=== PATIENT | female | born 1965 | race Caucasian/White ===

== ENCOUNTER 2018-12-05 17:38 | Emergency (ER) | payer SELFPAY ==
[~2018-12-05] VITALS: Ht 170.2 cm; Wt 69.0 kg
[2018-12-05 17:42] VITALS: BP 130/87
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
--- NOTE | 2018-12-05 17:58 | NUR ---
DR JIM AT BEDSIDE FOR PT EVAL
[2018-12-05 18:21] VITALS: BP 128/84
--- NOTE | 2018-12-05 18:21 | NUR ---
Patient discharged with v/s stable. Written and verbal after care instructions given and explained. Patient alert, oriented and verbalized understanding of instructions. Ambulatory with steady gait. All questions addressed prior to discharge. ID band removed. Patient advised to follow up with PMD. Rx of [facility] Hydrocortisone 1% topical cream, Permethrin 5% topical cream, Clindamycin Hydrochloride given. Patient educated on indication of medication including possible reaction and side effects. Opportunity to ask questions provided and answered.
== END 2018-12-05 18:21 | disposition home or self-care (01) ==
LOC: MED 17:38
DX: S40.862A Insect bite (nonvenomous) of left upper arm, initial encounter (principal); S30.860A Insect bite (nonvenomous) of lower back and pelvis, initial encounter; S30.861A Insect bite (nonvenomous) of abdominal wall, initial encounter; F17.210 Nicotine dependence, cigarettes, uncomplicated; W57.XXXA Bitten or stung by nonvenomous insect and other nonvenomous arthropods, initial encounter; Y93.89 Activity, other specified; Y92.89 Other specified places as the place of occurrence of the external cause; Y99.8 Other external cause status
CPT/HCPCS: 99283

== ENCOUNTER 2019-06-04 00:39 | Emergency (ER) | payer SELFPAY ==
[~2019-06-04] VITALS: Ht 170.2 cm; Wt 70.3 kg
[2019-06-04 00:54] VITALS: BP 135/81
--- NOTE | 2019-06-04 00:57 | NUR ---
PT AMBULATED TO BED 6.
--- NOTE | 2019-06-04 01:17 | NUR ---
53 Y/O FEMALE C/O BUG BITES TO RT ARM X 2 DAYS. PT STATES ITCHING AND 7/10 BURNING PAIN TO ARM. MILD REDNESS NOTED. DENIES FEVER/CHILLS. +CMS. NO SWELLING NOTED TO ARMS. RR EVEN AND UNLABORED, PT SITTING IN BED CALM AND PLEASANT. VSS. MEDHX: DENIES ALLERGIES: NKA
--- NOTE | 2019-06-04 01:36 | NUR ---
Dr. Chaudhari examining patient.
[2019-06-04] MEDS ORDERED: IBUPROFEN 800 MG TAB PO ONE (01:40)
[2019-06-04] MEDS ORDERED: SULFAMETH/TRIMETH DS 800/160MG 1 TAB PO ONE (01:40)
--- NOTE | 2019-06-04 01:54 | NUR ---
Patient discharged with v/s stable. Written and verbal after care instructions given and explained. Patient alert, oriented and verbalized understanding of instructions. Ambulatory with steady gait. All questions addressed prior to discharge. ID band removed. Patient advised to follow up with PMD. Rx of BACTRIM AND MOTRIN given. Patient educated on indication of medication including possible reaction and side effects. Opportunity to ask questions provided and answered.
--- NOTE | 2019-06-04 01:54 | NUR ---
PT LEFT BEFORE MEDICATION COULD BE RE-EVALUATED.
[2019-06-04 01:55] VITALS: BP 135/81
== END 2019-06-04 01:54 | disposition home or self-care (01) ==
LOC: MED 00:39
DX: S50.861A Insect bite (nonvenomous) of right forearm, initial encounter (principal); F17.200 Nicotine dependence, unspecified, uncomplicated; R03.0 Elevated blood-pressure reading, without diagnosis of hypertension; R21 Rash and other nonspecific skin eruption; Z71.6 Tobacco abuse counseling; W57.XXXA Bitten or stung by nonvenomous insect and other nonvenomous arthropods, initial encounter; Y93.89 Activity, other specified; Y92.89 Other specified places as the place of occurrence of the external cause; Y99.8 Other external cause status
CPT/HCPCS: 99283

== ENCOUNTER 2019-07-28 06:58 | Emergency (ER) | payer SELFPAY ==
[~2019-07-28] VITALS: Ht 167.6 cm; Wt 73.9 kg
[2019-07-28 07:03] VITALS: BP 121/57
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
[2019-07-28] MEDS ORDERED: NACL 0.9% 1,000 ML IV ONE (08:00)
--- NOTE | 2019-07-28 08:15 | NUR ---
REPORT TO SHEILA REINOSO RN.
--- NOTE | 2019-07-28 08:53 | NUR ---
PT RESTING IN BED, AWAKE, NO SIGNS OF DISTRESS.
--- NOTE | 2019-07-28 08:53 | NUR ---
PT INQUIRING ABOUT ANTI PRURITIS MEDICATION. WILL ASK ERMJasen.
[2019-07-28] MEDS ORDERED: diphenhydrAMINE 50 MG/ML VIAL IVP ONE (09:00)
--- NOTE | 2019-07-28 09:00 | NUR ---
DISCUSSED POSSIBLE SIDE EFFECTS OF THE ORDERED BENADRYL---PT VERBALIZED UNDERSTANDING. PT STATES A FAMILY MEMBER WILL BE HERE TO PICK HER UP AT DISCHARGE.
--- NOTE | 2019-07-28 10:03 | NUR ---
PT STATES STILL WITH ITCHING AT AFFECTED "BUG BITE" AREAS BUT ITCHING HAS DECREASED.
--- NOTE | 2019-07-28 10:05 | NUR ---
AMB TO BATHROOM WITH STEADY GAIT
[2019-07-28 10:20] VITALS: BP 118/68
--- NOTE | 2019-07-28 10:20 | NUR ---
Patient discharged with v/s stable. Written and verbal after care instructions given and explained. Patient alert, oriented and verbalized understanding of instructions. Ambulatory with steady gait. All questions addressed prior to discharge. ID band removed. Patient advised to follow up with PMD. Rx of Keflex and Naprosyn given. Patient educated on indication of medication including possible reaction and side effects. Opportunity to ask questions provided and answered.
== END 2019-07-28 10:20 | disposition home or self-care (01) ==
LOC: MED 06:58
DX: L03.113 Cellulitis of right upper limb (principal)
CPT/HCPCS: 96374; 99283; J1200

== ENCOUNTER 2019-07-28 19:28 | Emergency (ER) | payer MEDICAID ==
[~2019-07-28] VITALS: Ht 167.6 cm; Wt 73.9 kg
[2019-07-28 20:05] VITALS: BP 135/89
--- NOTE | 2019-07-28 20:08 | NUR ---
TO LOBBY A/W BED AMBULATORY
--- NOTE | 2019-07-28 20:37 | NUR ---
PT AMBULATED TO CHAIR D
[2019-07-28] MEDS ORDERED: cefTRIAXone 1,000 MG in LIDOCAINE MPF 1% 2.1 ML IM ONE (20:45)
[2019-07-28] MEDS ORDERED: KETOROLAC 60 MG/2 ML VIAL IM ONE (20:45)
[2019-07-28] MEDS ORDERED: LIDOCAINE MPF 1% 5 ML ONE (20:46)
[2019-07-28] MEDS ORDERED: cefTRIAXone 1,000 MG VIAL ONE (20:46)
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
[2019-07-28 21:14] VITALS: BP 135/89
--- NOTE | 2019-07-28 21:14 | NUR ---
Patient discharged with v/s stable. Written and verbal after care instructions given and explained. Patient verbalized understanding. Ambulatory with steady gait. All questions addressed prior to discharge. Advised to follow up with PMD.
== END 2019-07-28 21:14 | disposition home or self-care (01) ==
LOC: MED 19:28
DX: L03.114 Cellulitis of left upper limb (principal)
CPT/HCPCS: 96372; 99284; J0696; J1885; J2001

== ENCOUNTER 2021-12-15 14:01 | Emergency (ER) | payer SELFPAY ==
[~2021-12-15] VITALS: Ht 170.2 cm; Wt 66.5 kg
--- NOTE | 2021-12-15 14:33 | NUR ---
PT AMB TO BED 9.
[2021-12-15] MEDS ORDERED: IBUPROFEN 600 MG TAB PO ONE (14:50)
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
--- NOTE | 2021-12-15 15:18 | NUR ---
rajani santos at bedside for drainage procedure
[2021-12-15] MEDS ORDERED: IBUP-2213 PO (15:29)
[2021-12-15] MEDS ORDERED: CEPH-588 PO (15:29)
[2021-12-15] MEDS ORDERED: SULF-59 PO (15:29)
--- NOTE | 2021-12-15 15:51 | NUR ---
Patient discharged with v/s stable. Written and verbal after care instructions given and explained. Patient alert, oriented and verbalized understanding of instructions. Ambulatory with to car. All questions addressed prior to discharge. ID band removed. Patient advised to follow up with PMD. Rx of cephalexin, ibuprofen (sent) given. Patient educated on indication of medication including possible reaction and side effects. Opportunity to ask questions provided and answered. work note given for 2 days
== END 2021-12-15 15:51 | disposition home or self-care (01) ==
LOC: MED 14:01
DX: L72.3 Sebaceous cyst (principal); L08.9 Local infection of the skin and subcutaneous tissue, unspecified; Z79.899 Other long term (current) drug therapy
CPT/HCPCS: 99284

== ENCOUNTER 2021-12-18 10:13 | Emergency (ER) | payer SELFPAY ==
[~2021-12-18] VITALS: Ht 167.6 cm; Wt 67.1 kg
[~2021-12-18 10:13] MED LIST: CEPH-588 PO; IBUP-2213 PO; SULF-59 PO
[2021-12-18 10:39] VITALS: BP 121/81
--- NOTE | 2021-12-18 10:43 | NUR ---
Catalino townsend in [facility] - 12/18/21 at 1145 by [email or web address] PT TO [facility].
--- NOTE | 2021-12-18 11:46 | NUR ---
ATTEMPTED TO D/C PATIENT. NOT FOUND IN LOBBY/OUTSIDE. PT LEFT WITHOUT D/C PAPERS.
== END 2021-12-18 11:46 | disposition home or self-care (01) ==
LOC: MED 10:13
DX: L02.12 Furuncle of neck (principal); Z48.01 Encounter for change or removal of surgical wound dressing
CPT/HCPCS: 99281

== ENCOUNTER 2022-04-18 15:19 | Emergency (ER) | payer SELFPAY ==
[~2022-04-18] VITALS: Ht 167.6 cm; Wt 61.4 kg
[2022-04-18 15:25] VITALS: BP 130/87
--- NOTE | 2022-04-18 15:31 | NUR ---
PT AMB TO BED 5.
--- NOTE | 2022-04-18 15:59 | NUR ---
Dr. Shepard evaluating patient at bedside.
[2022-04-18] MEDS ORDERED: KETOROLAC 30 MG/ML VIAL IM ONE (16:15)
--- NOTE | 2022-04-18 16:15 | NUR ---
56 y/o female bib self for pain to coccyx x 1 week. Patient fell one week ago when she got off a ladder, walked back and tripped over a box. Patient has been taking Tylenol with minimal relief. Denies LOC. Medical History: Denies NKDA
--- NOTE | 2022-04-18 16:44 | NUR ---
Patient taken to imaging via gurney.
--- NOTE | 2022-04-18 16:56 | NUR ---
Patient returned from imaging.
[2022-04-18] MEDS ORDERED: ACET-8386 PO (17:20)
[2022-04-18] MEDS ORDERED: NAPR-1704 PO (17:20)
[2022-04-18] MEDS ORDERED: LID5T TP (17:20)
[2022-04-18 17:48] VITALS: BP 125/81
--- NOTE | 2022-04-18 17:48 | NUR ---
Patient discharged with v/s stable. Written and verbal after care instructions given. Patient alert, oriented and verbalized understanding of instructions. Ambulatory with steady gait. All questions addressed prior to discharge. ID band removed. Patient advised to follow up with PMD. Rx of Hydrocodone-Acetaminophen, Lidoderm and Naproxen given. Opportunity to ask questions provided and answered.
--- NOTE | 2022-04-18 17:55 | NUR ---
The patient's care was reviewed and supervised by ED Agency Nurse 8, RN, RN.
== END 2022-04-18 17:48 | disposition home or self-care (01) ==
LOC: MED 15:19
DX: M54.50 Low back pain, unspecified (principal)
CPT/HCPCS: 72220; 96372; 99283; J1885